=== PATIENT | female | born 1955 | race American Indian/Alaskan Native ===

== ENCOUNTER 2017-05-02 09:07 | Day surgery (SDC) | payer OTHER ==
[2017-05-02] MEDS ORDERED: Lactated Ringer's 500 ML IV ONE (10:00)
[2017-05-02 10:06] VITALS: PULSE 74; O2SAT 100
[2017-05-02] MEDS ORDERED: Lidocaine 2% MPF (5 ml) Inj ONE (10:15)
[2017-05-02 11:19] VITALS: BP 126/69; RESP 12; TEMP 96.5
== END 2017-05-02 12:11 | disposition home or self-care (01) ==
LOC: H.ENDO 09:07
PROVIDERS: ATTEND Internal Medicine Gastroenterology
DX: Z12.11 Encounter for screening for malignant neoplasm of colon (principal); K57.30 Diverticulosis of large intestine without perforation or abscess without bleeding; K64.0 First degree hemorrhoids; E78.5 Hyperlipidemia, unspecified; I10 Essential (primary) hypertension; K22.8 Other specified diseases of esophagus; K22.9 Disease of esophagus, unspecified; K20.9 Esophagitis, unspecified; K44.9 Diaphragmatic hernia without obstruction or gangrene; K29.50 Unspecified chronic gastritis without bleeding
CPT/HCPCS: 43239; 45378; 88305; J7120